=== PATIENT | female | born 1945 | race Two or more races ===

== ENCOUNTER 2017-07-26 15:13 | Outpatient (CLI) | payer OTHER ==
[~2017-07-26 15:13] MED LIST: DEXILANT60 MG PO; GABAPENTIN600 MG PO; GLIPIZIDE5 MG PO; GLUCOPHAGE XR750 MG PO; HYDROCHLOROTHIA25 MG PO; HYZAAR 100-251 UDTAB PO; JANUMET 50-1,01 EACH PO; JANUVIA100 MG PO; NORVASC5 MG PO; PLAVIX75 MG PO; PRILOSEC20 MG PO; RANITIDINE HCL300 M1 PO; RELAFEN500 MG PO; SETRALINE PO; TRAMADOL HCL E100 M1 PO; XARELTO10 MG PO
== END 2017-07-26 16:00 | disposition home or self-care (01) ==
LOC: NUCLEAR 15:13
DX: I87.2 Venous insufficiency (chronic) (peripheral) (principal)

== ENCOUNTER 2018-07-12 13:35 | Outpatient (CLI) | payer OTHER | END 2018-07-12 14:18 | disposition home or self-care (01) | LOC: RAD 501 13:35 | DX: M79.641 Pain in right hand (principal); M79.642 Pain in left hand ==

== ENCOUNTER 2019-08-02 07:21 | Outpatient (CLI) | payer OTHER | END 2019-08-02 15:00 | disposition home or self-care (01) | LOC: LAB 07:21 | DX: I49.8 Other specified cardiac arrhythmias (principal); Z76.89 Persons encountering health services in other specified circumstances; D64.89 Other specified anemias; E88.89 Other specified metabolic disorders; D68.8 Other specified coagulation defects; N39.0 Urinary tract infection, site not specified; Z22.322 Carrier or suspected carrier of Methicillin resistant Staphylococcus aureus ==

== ENCOUNTER 2019-08-19 10:20 | Outpatient (CLI) | payer OTHER | END 2019-08-19 10:26 | disposition home or self-care (01) | LOC: LAB 10:20 | DX: Z22.322 Carrier or suspected carrier of Methicillin resistant Staphylococcus aureus (principal) ==

== ENCOUNTER 2019-08-26 10:05 | Outpatient (CLI) | payer OTHER | END 2019-08-26 10:11 | disposition home or self-care (01) | LOC: RAD 10:05 | DX: M19.041 Primary osteoarthritis, right hand (principal) ==

== ENCOUNTER 2022-09-01 08:37 | Outpatient (CLI) | payer OTHER | END 2022-09-01 08:47 | disposition home or self-care (01) | LOC: RAD 08:37 | PROVIDERS: ATTEND Orthopaedic Surgery | DX: M25.572 Pain in left ankle and joints of left foot (principal) ==

== ENCOUNTER 2022-10-27 11:30 | Outpatient (CLI) | payer OTHER | END 2022-10-27 11:45 | disposition home or self-care (01) | LOC: RAD 11:30 | PROVIDERS: ATTEND Orthopaedic Surgery | DX: M25.562 Pain in left knee (principal); S20.219A Contusion of unspecified front wall of thorax, initial encounter ==

== ENCOUNTER 2022-11-24 07:44 | Outpatient (CLI) | payer OTHER | END 2022-11-24 07:55 | disposition home or self-care (01) | LOC: RX STUDY 07:44 | DX: R10.13 Epigastric pain (principal); K21.00 Gastro-esophageal reflux disease with esophagitis, without bleeding ==

== ENCOUNTER 2022-12-05 09:17 | Outpatient (CLI) | payer OTHER ==
[2022-12-05] MEDS ORDERED: LEVOXYL25 MCG PO (11:59)
[2022-12-05] MEDS ORDERED: BUPROPION XL450 MG PO (12:00)
[2022-12-05] MEDS ORDERED: SERTRALINE HCL100 MG PO (12:00)
[2022-12-05] MEDS ORDERED: NAMENDA10 MG PO (12:01)
[2022-12-05] MEDS ORDERED: CARBIDOPA-LEVO1 EAC4 PO (12:01)
== END 2022-12-05 15:01 | disposition home or self-care (01) ==
LOC: LAB 09:17
PROVIDERS: ATTEND Orthopaedic Surgery
DX: D64.89 Other specified anemias (principal); E88.89 Other specified metabolic disorders; D68.8 Other specified coagulation defects; N39.0 Urinary tract infection, site not specified; A49.02 Methicillin resistant Staphylococcus aureus infection, unspecified site; E11.9 Type 2 diabetes mellitus without complications; I49.9 Cardiac arrhythmia, unspecified; I10 Essential (primary) hypertension; Z76.89 Persons encountering health services in other specified circumstances; M25.532 Pain in left wrist; M19.042 Primary osteoarthritis, left hand

== ENCOUNTER 2022-12-13 05:50 | Day surgery (SDC) | payer OTHER ==
[~2022-12-13 05:50] MED LIST changes: +BUPROPION XL450 MG PO; +CARBIDOPA-LEVO1 EAC4 PO; +LEVOXYL25 MCG PO; +NAMENDA10 MG PO; +SERTRALINE HCL100 MG PO
== END 2022-12-13 12:10 | disposition home or self-care (01) ==
LOC: CIR.AMB 05:50
PROVIDERS: ATTEND Orthopaedic Surgery
DX: T84.84XA Pain due to internal orthopedic prosthetic devices, implants and grafts, initial encounter (principal); M65.832 Other synovitis and tenosynovitis, left forearm; G56.01 Carpal tunnel syndrome, right upper limb; M19.042 Primary osteoarthritis, left hand; Z03.818 Encounter for observation for suspected exposure to other biological agents ruled out; Z20.822 Contact with and (suspected) exposure to COVID-19; M25.532 Pain in left wrist; M65.9 Synovitis and tenosynovitis, unspecified
CPT/HCPCS: 20680; 20900; 25260; L8699